=== PATIENT | male | born 1965 | race Caucasian/White ===

== ENCOUNTER 2020-04-14 06:48 | Day surgery (SDC) | payer BC ==
[2020-04-06 14:58] LABS: BASOPHILS % (AUTO) 0.7 % (0-1); EOSINOPHILS # (AUTO) 0.2 X10'3 (0-0.9); EOSINOPHILS % (AUTO) 2.8 % (0-6); LYMPHOCYTES # (AUTO) 1.7 X10'3 (1.1-4.8); LYMPHOCYTES % (AUTO) 27.5 % (21-51); MEAN CORPUSCULAR HEMOGLOBIN 30.8 PG (27.0-31.0); MEAN CORPUSCULAR HGB CONC 33.7 g/dL (33.0-36.5); MEAN CORPUSCULAR VOLUME 91.4 FL (78-98); MEAN PLATELET VOLUME 8.5 FL (7.4-10.4); MONOCYTES # (AUTO) 0.6 X10'3 (0-0.9); MONOCYTES % (AUTO) 9.5 % (2-12); NEUTROPHILS # (AUTO) 3.8 X10'3 (1.8-7.7); NEUTROPHILS % (AUTO) 59.5 % (42-75); PRE OP HEMATOCRIT 45.4 % (42.0-52.0); PRE OP HEMOGLOBIN 15.3 g/dL (14.0-17.9); PRE OP PLATELET COUNT 304 X10'3 (140-440); RED BLOOD COUNT 4.97 X10'6 (4.70-6.10); RED CELL DISTRIBUTION WIDTH 13.8 % (11.5-14.5)
[2020-04-06 15:00] LABS: ALBUMIN 3.3 G/DL (3.4-5.0); ALBUMIN/GLOBULIN RATIO 0.8 (1.1-1.5); ALKALINE PHOSPHATASE 92 IU/L (46-116); BLOOD UREA NITROGEN 14 MG/DL (7-18); BUN/CREATININE RATIO 13.6 (5.4-32.0); CALCIUM 8.9 MG/DL (8.5-10.1); CHLORIDE 107 MMOL/L (99-107); CREATININE 1.03 MG/DL (0.60-1.10); PRE OP ALT 30 U/L (30-65); PRE OP ANION GAP 8 (8-16); PRE OP AST 28 U/L (10-37); PRE OP BILIRUB, TOTAL 0.4 MG/DL (0.0-1.0); PRE OP GLUCOSE 123 MG/DL (70-104); PRE OP POTASSIUM 4.1 MMOL/L (3.4-5.1); PRE OP SODIUM 142 MMOL/L (135-145); TOTAL CARBON DIOXIDE 26.7 MMOL/L (24-32); TOTAL PROTEIN 7.6 G/DL (6.4-8.2); eGFR 75 ML/MIN
[~2020-04-14] VITALS: Ht 172.7 cm; Wt 124.7 kg
[~2020-04-14 06:48] MED LIST: LISI-600 PO; MELO-102 PO; PARO20TA6 PO; ceFAZolin inj. 3,000 MG in normal saline 100ml IV soln 100 ML IV ONE; famotidine 20mg tablet PO ONE; ringers solution, lacted 1,000 ML IV SCH; vancomycin 1,500 MG in NS 300ml IV soln IV ONE
[2020-04-14 07:00] VITALS: BP 159/96
[2020-04-14] MEDS ORDERED: meperidine/PF 25mg/ml syringe IV PRN ×3 (07:20)
[2020-04-14] MEDS ORDERED: morphine 2 MG/ML inj. syringe IV PRN (07:20)
[2020-04-14] MEDS ORDERED: morphine 4 MG/ML inj SYRINge IV PRN (07:20)
[2020-04-14] MEDS ORDERED: proCHLORperazine 10 MG/2 ml inj IV PRN (07:20)
[2020-04-14] MEDS ORDERED: ondansetron/PF 4mg/2ml inj IV PRN (07:20)
[2020-04-14] MEDS ORDERED: ringers solution, lacted 1,000 ML IV SCH (07:20)
[2020-04-14] MEDS ORDERED: sevoflurane 250ml liquid IH ONE (08:28)
[2020-04-14] MEDS ORDERED: neostigmine methylsulfate 1 MG/ML 10ml vial ONE (08:28)
[2020-04-14] MEDS ORDERED: fentaNYL /PF 50mcg/ml 5ml ampule ONE (08:37)
[2020-04-14] MEDS ORDERED: LIDOcaine 2% (20mg/ml) 5ml vial ONE (08:37)
[2020-04-14] MEDS ORDERED: midazolam 2 mg/2 ml injection ONE (08:37)
[2020-04-14] MEDS ORDERED: propofol inj 20 ML IV ONE ×2 (08:37→08:47)
[2020-04-14] MEDS ORDERED: triamcinolone acetonide 40mg/ml inj ONE (08:41)
[2020-04-14] MEDS ORDERED: BUPIVAcaine/PF 2.5 mg/ml (0.25%) 30ml vial ONE (08:41)
[2020-04-14] MEDS ORDERED: dexamethasone sod phosphate 4mg/ml inj. ONE (08:48)
[2020-04-14] MEDS ORDERED: ondansetron/PF 4mg/2ml inj ONE (08:48)
[2020-04-14] MEDS ORDERED: ketorolac trometh. 30mg/ml inj. ONE (09:55)
[2020-04-14] MEDS ORDERED: ePHEDrine 50MG/ML INJ. ONE (10:19)
[2020-04-14 10:40] VITALS: BP 124/70
--- NOTE | 2020-04-14 10:40 | NUR ---
Received from OR via BED, accompanied by Anesthesiologist DR BLACKWELL--- and report given by Anesthesiolgist. PATIENT A&OX4, DENIES PAIN, V/S WNL, NEUROVASCULAR CHECKS INTACT, 20G PIV LUE, SCD ON, BILATERAL KNEE DRESSINGS CDI.
[2020-04-14 10:50] VITALS: BP 134/86
[2020-04-14 11:00] VITALS: BP 137/81
[2020-04-14 11:10] VITALS: BP 125/77
--- NOTE | 2020-04-14 11:10 | NUR ---
PATIENT A&OX4, DENIES PAIN, V/S WNL, NEUROVASCULAR CHECKS INTACT, 20G PIV LUE D/C, SCD OFF, BILATERAL KNEE DRESSINGS CDI. I HAVE REVIEWED D/C INSTRUCTIONS WITH PATIENT AND FAMILY AND THEY HAVE VERBALIZED UNDERSTANDING. PATIENT D/C HOME WITH ALL BELONGINGS AND FAMILY GAVE TRANSPORT HOME.
== END 2020-04-14 11:10 | disposition home or self-care (01) ==
LOC: PAS 06:48
PROVIDERS: ATTEND Orthopaedic Surgery
DX: S83.231A Complex tear of medial meniscus, current injury, right knee, initial encounter (principal); S83.232A Complex tear of medial meniscus, current injury, left knee, initial encounter; S83.272A Complex tear of lateral meniscus, current injury, left knee, initial encounter; S83.271A Complex tear of lateral meniscus, current injury, right knee, initial encounter; M94.262 Chondromalacia, left knee; M94.261 Chondromalacia, right knee; Z20.822 Contact with and (suspected) exposure to COVID-19; F41.9 Anxiety disorder, unspecified; G89.4 Chronic pain syndrome; F32.9 Major depressive disorder, single episode, unspecified; I10 Essential (primary) hypertension; M17.0 Bilateral primary osteoarthritis of knee; M10.9 Gout, unspecified; E66.01 Morbid (severe) obesity due to excess calories; Z68.41 Body mass index [BMI] 40.0-44.9, adult; Z72.89 Other problems related to lifestyle; Z79.899 Other long term (current) drug therapy; Z98.890 Other specified postprocedural states; X58.XXXA Exposure to other specified factors, initial encounter; Y93.89 Activity, other specified; Y92.89 Other specified places as the place of occurrence of the external cause; Y99.8 Other external cause status
CPT/HCPCS: 29873; 29879; 29880; 36415; 80053; 82948; 85025; 87635; 93005; J0690; J1100; J1885; J2001; J2250; J2405; J2704; J2710; J3010; J3301; J3370; J3490; J7040; A4215; A4618; A6250; A6449; A7000; J7120

== ENCOUNTER 2020-05-11 11:34 | Outpatient (CLI) | payer BC ==
[~2020-05-11 11:34] MED LIST changes: -LISI-600 PO; +LISI20TA28 PO; -ceFAZolin inj. 3,000 MG in normal saline 100ml IV soln 100 ML IV ONE; -famotidine 20mg tablet PO ONE; -ringers solution, lacted 1,000 ML IV SCH; -vancomycin 1,500 MG in NS 300ml IV soln IV ONE
== END 2020-05-11 23:59 | disposition home or self-care (01) ==
LOC: VAS 11:34
PROVIDERS: ATTEND Orthopaedic Surgery
DX: S83.231A Complex tear of medial meniscus, current injury, right knee, initial encounter (principal); S83.271A Complex tear of lateral meniscus, current injury, right knee, initial encounter; S83.232A Complex tear of medial meniscus, current injury, left knee, initial encounter; S83.272A Complex tear of lateral meniscus, current injury, left knee, initial encounter; M22.41 Chondromalacia patellae, right knee; M22.42 Chondromalacia patellae, left knee; M22.01 Recurrent dislocation of patella, right knee; M22.02 Recurrent dislocation of patella, left knee; M25.462 Effusion, left knee; X58.XXXA Exposure to other specified factors, initial encounter; Y93.89 Activity, other specified; Y92.89 Other specified places as the place of occurrence of the external cause; Y99.8 Other external cause status
CPT/HCPCS: 93971